=== PATIENT | female | born 1990 | race Two or more races ===

== ENCOUNTER 2023-11-21 14:32 | Emergency (ER) | payer OTHER ==
[~2023-11-21] VITALS: Ht 157.5 cm; Wt 80.7 kg
[~2023-11-21 14:32] MED LIST: PRENA1 CHEW TA1.4 MG
[2023-11-21] MEDS ORDERED: LEVOTHYROXINE25 MC1 (15:29)
[2023-11-21 18:14] LABS: PH,URINE 6.5 (5.0-8.0); URINE APPEARANCE Cloudy; URINE BILIRRUBIN Negative (NEGATIVE); URINE BLOOD Negative; URINE COLOR Yellow; URINE LEUKOCYTE Moderate; URINE NITRATE Negative; URINE PROTEIN Negative (NEGATIVE)
[2023-11-21 18:19] LABS: URINE BACTERIA 6500.1 uL (0.0-1933); URINE EPITHELIAL CELLS 103.4 uL (0.0-38.8); URINE RBC 2.5 uL (0.0-20.8); URINE WBC 444.7 uL (0.0-23.2)
[2023-11-21 18:24] LABS: HEMATOCRIT 37.1 % (36.0-45.00); HEMOGLOBIN 12.6 g/dL (12.0-15.00); MEAN CELL VOLUME 86.4 fL (80.00-100.00); MEAN CORPUSCULAR HEMOGLOBIN 29.4 pg (27.00-32.0); PLATELET COUNT 265 K/uL (150-450); RED BLOOD COUNT 4.29 M/uL (4.00-6.00); RED CELL DISTRIBUTION WIDTH 13.8 % (11.5-14.5)
[2023-11-21 18:53] LABS: URINE GLUCOSE 100 MG/DL (NEGATIVE)
[2023-11-21 19:00] LABS: CALCIUM 9.3 mg/dL (8.5-10.1); CREATININE SERUM 0.57 mg/dL (0.55-1.02); GFR 123.71; POTASSIUM 3.49 mEq/L (3.5-5.1)
[2023-11-21] MEDS ORDERED: MACROBID 100 M100 MG PO (19:14)
[2023-11-23] MEDS ORDERED: LEVOTHYROXINE25 MCG PO (01:17)
[2023-11-23] MEDS ORDERED: PRENA1 TRUE CO1 EACH (01:18)
[2023-11-23] MEDS ORDERED: ENDOMETRIN100 MG (01:18)
[2023-11-23] MEDS ORDERED: MACROBID 100 M100 MG (01:18)
[2023-11-23] MEDS ORDERED: PRENATAL TABLE1 EAC1 PO (02:49)
[2023-11-23] MEDS ORDERED: MACROBID 100 M100 MG PO (02:49)
[2023-11-23] MEDS ORDERED: ENDOMETRIN100 MG VAG (02:50)
== END 2023-11-21 19:22 | disposition home or self-care (01) ==
LOC: ER 14:33
PROVIDERS: General Practice
DX: O23.42 Unspecified infection of urinary tract in pregnancy, second trimester (principal); N39.0 Urinary tract infection, site not specified; O99.282 Endocrine, nutritional and metabolic diseases complicating pregnancy, second trimester; Z3A.18 18 weeks gestation of pregnancy

== ENCOUNTER → 2023-11-23 | Outpatient (CLI) | payer OTHER ==
[~2023-11-23] VITALS: Ht 157.5 cm; Wt 80.7 kg
[~2023-11-23] MED LIST changes: +ACETAMINOPHEN 500 MG GEL..CAP PO PRN; +ENDOMETRIN100 MG; +ENDOMETRIN100 MG VAG; +LEVOTHYROXINE SODIUM 25 MCG TABLET PO SCH; +LEVOTHYROXINE25 MC1; +LEVOTHYROXINE25 MCG PO; +MACROBID 100 M100 MG; +MACROBID 100 M100 MG PO; +NITROFURANTOIN MONOHYD/M-CRYST 100 MG CAPSULE PO SCH; +PNV,CALCIUM 72/IRON/FOLIC ACID 1 TAB TABLET PO SCH; +PRENA1 TRUE CO1 EACH; +PRENATAL TABLE1 EAC1 PO; +RINGERS SOLUTION,LACTATED 1,000 ML IV ONE
[2023-11-23 02:22] LABS: HEMATOCRIT 37.8 % (36.0-45.00); HEMOGLOBIN 12.8 g/dL (12.0-15.00); MEAN CORPUSCULAR HEMOGLOBIN 28.9 pg (27.00-32.0); PLATELET COUNT 226 K/uL (150-450); RED BLOOD COUNT 4.44 M/uL (4.00-6.00)
[2023-11-23 02:33] LABS: INR 1.01; PARTIAL THROMBOPLASTIN TIME 28.2 SECONDS (22.0-34.0); PROTHROMBIN TIME 10.6 SECONDS (9.0-11.5)
[2023-11-23 03:06] LABS: CALCIUM 9.3 mg/dL (8.5-10.1); CREATININE SERUM 0.54 mg/dL (0.55-1.02); GFR 131.68; POTASSIUM 3.14 mEq/L (3.5-5.1)
[2023-11-23 07:08] LABS: PH,URINE 6.5 (5.0-8.0); URINE APPEARANCE Cloudy; URINE BILIRRUBIN Small (NEGATIVE); URINE BLOOD Large; URINE COLOR Orange; URINE LEUKOCYTE Small; URINE NITRATE Negative; URINE PROTEIN 30 (NEGATIVE)
[2023-11-23 07:13] LABS: URINE BACTERIA 364.1 uL (0.0-1933); URINE EPITHELIAL CELLS 25.3 uL (0.0-38.8); URINE WBC 155.3 uL (0.0-23.2)
[2023-11-23 08:00] LABS: URINE GLUCOSE 250 MG/DL (NEGATIVE); URINE RBC > 10558.9 uL (0.0-20.8)
[2023-11-23 10:33] LABS: HEMATOCRIT 33.5 % (36.0-45.00); HEMOGLOBIN 11.4 g/dL (12.0-15.00); MEAN CELL VOLUME 84.9 fL (80.00-100.00); MEAN CORPUSCULAR HEMOGLOBIN 28.9 pg (27.00-32.0); PLATELET COUNT 249 K/uL (150-450); RED BLOOD COUNT 3.95 M/uL (4.00-6.00)
== END | disposition home or self-care (01) ==
LOC: ER → EDSTATUS 01:00 → OBS/DEL 02:01 → ER 02:01 → LDR 02:46 → OB/GYN 02:46 → ER 02:46 → LDR 04:06 → OB/GYN 04:06
PROVIDERS: Obstetrics & Gynecology; ATTEND General Practice
DX: O03.9 Complete or unspecified spontaneous abortion without complication (principal); O60.22X0 Term delivery with preterm labor, second trimester, not applicable or unspecified; O23.42 Unspecified infection of urinary tract in pregnancy, second trimester; N39.0 Urinary tract infection, site not specified; O45.92 Premature separation of placenta, unspecified, second trimester; Z3A.18 18 weeks gestation of pregnancy; R10.2 Pelvic and perineal pain